=== PATIENT | female | born 1990 | race Native Hawaiian/Other Pacific Islander ===

== ENCOUNTER 2021-03-04 14:00 | Emergency (ER) | payer OTHER ==
[~2021-03-04] VITALS: Ht 149.9 cm; Wt 65.8 kg
[2021-03-04 14:07] VITALS: BP 129/89; TEMP 98.9
== END 2021-03-04 14:45 | disposition home or self-care (01) ==
LOC: ED 14:00
DX: S01.111A Laceration without foreign body of right eyelid and periocular area, initial encounter (principal); Y04.2XXA Assault by strike against or bumped into by another person, initial encounter; Y93.89 Activity, other specified; Y92.89 Other specified places as the place of occurrence of the external cause; Y99.8 Other external cause status
CPT/HCPCS: 99282